=== PATIENT | male | born 1965 | race Caucasian/White ===

== ENCOUNTER 2019-10-16 15:10 | Emergency (ER) | payer SELFPAY ==
--- NOTE | 2019-10-16 16:21 | EDPHYS ---
Physician Documentation [facility] Name: Terry Hyatt Age: 53 yrs Sex: Male : 1965 Arrival Date: 10/16/2019 Time: 15:14 Bed 14 Private MD: ED Physician Carlos Sommer HPI: 10/15 16:14 This 53 yrs old Male presents to ER via Unassigned with complaints of Hand cp Problem. 16:14 The patient or guardian reports pain, multiple open wounds. The complaints affect the cp right hand and left hand. Context: resulted from work. Onset: The symptoms/episode began/occurred 1 month(s) ago. Associated signs and symptoms: Pertinent negatives: cyanosis distally, fever, numbness distally. Severity of symptoms: in the emergency department the symptoms are unchanged, despite home interventions. Historical: - Allergies: 16:18 No Known Allergies; ph - Home Meds: 16:18 None [Active]; ph - PMHx: 16:18 None; ph - Immunization history:: Adult Immunizations unknown. - Social history:: Smoking status: Patient denies any tobacco usage or history of. ROS: 16:15 Eyes: Negative for injury, pain, redness, and discharge. cp 16:15 Constitutional: Negative for body aches, chills, fever, poor PO intake. 16:15 Cardiovascular: Negative for chest pain. 16:15 Respiratory: Negative for cough, shortness of breath. 16:15 Abdomen/GI: Negative for abdominal pain, vomiting, diarrhea, constipation. 16:15 Skin: Positive for abrasion(s), of the right hand and left hand, pain, multiple open wounds. 16:15 All other systems are negative. Exam: 16:17 Constitutional: The patient appears in no acute distress, alert, awake, non-toxic, well cp developed, well nourished. 16:17 Skin: multiple abrasions and superficial open wounds noted to bilateral hands with mild swelling, tender to touch. No drainage expressed. Vital Signs: 16:14 BP 143 / 86; Pulse 60; Resp 18; Temp 98.3; Pulse Ox 99% on R/A; Weight 70.31 kg; Height ph 5 ft. 10 in. (177.80 cm); 17:08 BP 124 / 75; Pulse 55; Resp 16; Temp 98.5; Pulse Ox 99% ; bp 16:14 Body Mass Index 22.24 (70.31 kg, 177.80 cm) ph MDM: 16:08 Patient medically screened. cp 16:18 Data reviewed: vital signs, nurses notes, and as a result, I will discharge patient. cp Administered Medications: No medications were administered Disposition: 16:25 Chart complete. cp Disposition: 10/16/19 16:21 Discharged to Home. Impression: Other local infections of skin and subcutaneous tissue - bilateral hand. - Condition is Stable. - Discharge Instructions: Staphylococcal Infection. - Prescriptions for Bactroban 2 % Topical Cream - Apply to affected area 1 application by TOPICAL route every 12 hours; 30 gram. Doxycycline Hyclate 100 mg Oral Tablet - take 1 tablet by ORAL route every 12 hours; 20 tablet. - Medication Reconciliation Form, Thank You Letter, Antibiotic Education, Prescription Opioid Use form. - Follow up: Private Physician; When: 2 - 3 days; Reason: Worsening of condition. - Problem is new. - Symptoms are unchanged. Addendum: 10/29/2019 21:17 Co-signature as Attending Physician, Carlos Sommer MD available for consultation at p s1 all times. . Signatures: Cassidy Herbert RN RN ph Kwabena Srivastava PA PA cp Malik Ivan RN RN bp Singer, Phillip, MD MD ps1 Corrections: (The following items were deleted from the chart) 10/15 17:10 16:21 10/16/2019 16:21 Discharged to Home. Impression: Other local infections of skin bp and subcutaneous tissue - bilateral hand. Condition is Stable. Forms are Medication Reconciliation Form, Thank You Letter, Antibiotic Education, Prescription Opioid Use. Follow up: Private Physician; When: 2 - 3 days; Reason: Worsening of condition. Problem is new. Symptoms are unchanged. cp
--- NOTE | 2019-10-16 16:21 | ER ---
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 Coronavirus screen: The patient has NOT traveled to a country currently being monitored by the [facility] within the last 14 days. The patient has NOT had contact with any known and/or suspected case of coronavirus. Ebola Screen: No symptoms or risks identified at this time. Initial Sepsis Screen: Does the patient meet any 2 criteria? No. Patient's initial sepsis screen is negative. Does the patient have a suspected source of infection? No. Patient's initial sepsis screen is negative. Risk Assessment: Do you want to hurt yourself or someone else? Patient reports no desire to harm self or others. 16:14 Method Of Arrival: Ambulatory ph 16:14 Acuity: YENIFER 4 ph Triage Assessment: 16:15 General: Appears in no apparent distress. comfortable, Behavior is cooperative, bp appropriate for age, anxious. Pain: Complains of pain in right hand and left hand. EENT: No deficits noted. Neuro: No deficits noted. Cardiovascular: No deficits noted. Respiratory: No deficits noted. GI: No signs and/or symptoms were reported involving the gastrointestinal system. : No signs and/or symptoms were reported regarding the genitourinary system. Derm: Wound noted right hand and left hand. Musculoskeletal: No deficits noted. Historical: - Allergies: 16:18 No Known Allergies; ph - Home Meds: 16:18 None [Active]; ph - PMHx: 16:18 None; ph - Immunization history:: Adult Immunizations unknown. - Social history:: Smoking status: Patient denies any tobacco usage or history of. Screenin:30 Abuse screen: Denies threats or abuse. Denies injuries from another. Nutritional bp screening: No deficits noted. Tuberculosis screening: No symptoms or risk factors identified. Fall Risk None identified. Assessment: 16:15 General: SEE TRIAGE NOTE. bp 17:09 Reassessment: PT D/C HOME AMBULATORY, DX WITH CUTANEOUS STAPH INFECTION. bp Vital Signs: 16:14 BP 143 / 86; Pulse 60; Resp 18; Temp 98.3; Pulse Ox 99% on R/A; Weight 70.31 kg; Height ph 5 ft. 10 in. (177.80 cm); 17:08 BP 124 / 75; Pulse 55; Resp 16; Temp 98.5; Pulse Ox 99% ; bp 16:14 Body Mass Index 22.24 (70.31 kg, 177.80 cm) ph ED Course: 15:14 Patient arrived in ED. ag5 16:05 Kwabena Srivastava PA is PHCP. cp 16:05 Carlos Sommer MD is Attending Physician. cp 16:05 Arturo Easley PA is PHCP. [facility] 16:17 Triage completed. ph 16:18 Arm band placed on Patient placed in an exam room. ph 16:28 Malik Ivan, RN is Primary Nurse. bp 16:30 Patient has correct armband on for positive identification. Bed in low position. Call bp light in reach. Side rails up X2. 17:09 No provider procedures requiring assistance completed. Patient did not have IV access bp during this emergency room visit. Administered Medications: No medications were administered Outcome: 16:21 Discharge ordered by . cp 17:09 Discharged to home ambulatory. bp 17:09 Condition: stable 17:09 Discharge instructions given to patient, Instructed on discharge instructions, follow up and referral plans. medication usage, wound care, Demonstrated understanding of instructions, follow-up care, medications, wound care, Prescriptions given X 2. 17:10 Patient left the ED. bp Signatures: Arturo Easley PA PA jmm Hall, Patricia, RN RN ph Kwabena Srivastava PA PA cp Malik Ivan, RN RN bp Patti Duncan ag5
[2019-10-16 17:27] VITALS: O2SAT 99
[2019-10-16 17:28] VITALS: BP 124/75; TEMP 98.5
== END 2019-10-16 17:10 | disposition home or self-care (01) ==
LOC: ER 15:10
DX: L08.9 Local infection of the skin and subcutaneous tissue, unspecified (principal); S61.402A Unspecified open wound of left hand, initial encounter; S61.401A Unspecified open wound of right hand, initial encounter; S60.511A Abrasion of right hand, initial encounter; X58.XXXA Exposure to other specified factors, initial encounter; Y93.9 Activity, unspecified; Y92.89 Other specified places as the place of occurrence of the external cause; Y99.8 Other external cause status
CPT/HCPCS: 99282